=== PATIENT | female | born 1960 | race African-American/Black ===

== ENCOUNTER 2020-01-07 13:06 | Inpatient (IN) ==
[2020-01-07] MEDS ORDERED: DILTIAZEM 25 MG/5 ML VIAL IV ONE (13:44)
[2020-01-07] MEDS ORDERED: DILTIAZEM 50 MG/10 ML VIAL IV STA ×2 (13:45→16:46)
[2020-01-07] MEDS ORDERED: ALBUTEROL/IPRATROPIUM 3 ML NEB RESP TX STA (13:46)
[2020-01-07 14:11] LABS: Ferritin 280.4 ng/ml (8-252)
[2020-01-07 14:20] LABS: Albumin 2.9 G/DL (3.4-5.0); Bilirubin,Total 0.6 MG/DL (0.2-1.0); Calcium 9.4 MG/DL (8.5-10.1); Osmolality,Calculated 276.5 MOS/KG (273-304); Thyroid Stimulating Hormone 0.897 uIU/ml (0.358-3.74); Total Protein 7.2 G/DL (6.4-8.3)
[2020-01-07] MEDS ORDERED: dilTIAZem Drip 125 MG/125 ML PREMIX IV SCH (14:30)
[2020-01-07 14:50] LABS: Basophils # 0.1 10*3/uL (0.0-0.2); Basophils % 0.6 % (0.0-0.8); Eosinophils % 0.4 % (0.00-10.9); Hematocrit 47.1 VOL% (35.7-47.0); Hemoglobin 14.2 GM/DL (12.0-16.0); Immature Granulocytes % 0.4 %; Immature Granulocytes Absolute 0.04 #; Lymphocytes # 1.7 10*3/uL (1.4-4.0); Lymphocytes % 18.2 % (21.3-54.2); Mean Corpuscular HGB Conc 30.1 GM/DL (32-36); Mean Corpuscular Volume 87.7 FL (87-102); Mean Platelet Volume 11.5 FL (9.6-12.0); Monocytes % 8.3 % (1.7-12.7); Neutrophils % 72.1 % (38.7-73.9); Platelet Count 188 T/CUMM (130-400); Red Blood Count 5.37 MC/CUMM (3.8-5.5); Red Cell Distribution Width 16.5 % (9.3-17.3); White Blood Count 9.5 T/CUMM (4-12)
[2020-01-07] MEDS ORDERED: dilTIAZem Drip 125 MG/125 ML PREMIX IV ONE (14:51)
[2020-01-07] MEDS ORDERED: LEVOFLOXACIN INJ 500 MG in PREMIX 1 EACH IV STA (15:30)
[2020-01-07] MEDS ORDERED: AZITHROMYCIN 250 MG TABLET PO STA (15:30)
[2020-01-07 15:45] LABS: Barbiturates Screen,Urine Negative (Negative); Benzodiazepines Screen,Urine Negative (Negative); Cannabinoid Screen,Urine Negative (Negative); Opiate Screen,Urine Negative (Negative); Phencyclidine Screen,Urine Negative (Negative)
[2020-01-07] MEDS ORDERED: FUROSEMIDE 40 MG/4 ML VIAL IV STA (15:50)
[2020-01-07] MEDS ORDERED: BISACODYL 5 MG TABLET PO PRN (15:57)
[2020-01-07] MEDS ORDERED: ONDANSETRON 4 MG/2 ML VIAL IV PRN (15:57)
[2020-01-07] MEDS: ENOXAPARIN 80 MG/0.8 ML SYRINGE SUBCUT SCH (15:58)
[2020-01-07] MEDS ORDERED: ALBUTEROL 2.5 MG/3 ML NEB RESP TX PRN ×2 (16:04→16:27)
[2020-01-07] MEDS ORDERED: NICOTINE 21 MG/24 HR PATCH TRANSDERM PRN (16:27)
[2020-01-07] MEDS ORDERED: cefTRIAXone 1,000 MG in SYRINGE 1 EACH IV SCH (16:30)
[2020-01-07 16:42] LABS: ABG Base Excess 14.5 MMOL/L (-2.5-2.5); ABG HCO3 37.8 MMOL/L (20-26); ABG Oxygen Saturation 74.7 % (95-100); ABG PH 7.318 (7.35-7.45); ABG PO2 46.8 MM HG (80-95); ABG TCO2 40.7 MMOL/L (23-27)
[2020-01-07 16:45] LABS: ABG PCO2 90.7 MM HG (35-48)
[2020-01-07] MEDS ORDERED: LORazepam 2 MG/1 ML VIAL IV PRN (17:19)
[2020-01-07] MEDS: FAMOTIDINE 20 MG TABLET PO SCH (21:35)
[2020-01-07] MEDS: FUROSEMIDE 40 MG/4 ML VIAL IV SCH (21:36)
[2020-01-08 04:42] LABS: Basophils % 0.4 % (0.0-0.8); Eosinophils % 0.2 % (0.00-10.9); Hematocrit 45.2 VOL% (35.7-47.0); Hemoglobin 13.3 GM/DL (12.0-16.0); Immature Granulocytes % 0.4 %; Immature Granulocytes Absolute 0.03 #; Lymphocytes # 1.4 10*3/uL (1.4-4.0); Lymphocytes % 16.8 % (21.3-54.2); Mean Corpuscular HGB Conc 29.4 GM/DL (32-36); Mean Corpuscular Volume 89.5 FL (87-102); Mean Platelet Volume 11.2 FL (9.6-12.0); Monocytes % 9.1 % (1.7-12.7); Neutrophils % 73.1 % (38.7-73.9); Red Blood Count 5.05 MC/CUMM (3.8-5.5); Red Cell Distribution Width 16.6 % (9.3-17.3); White Blood Count 8.2 T/CUMM (4-12)
[2020-01-08 04:44] LABS: Platelet Count 158 T/CUMM (130-400)
[2020-01-08] MEDS: ENOXAPARIN 80 MG/0.8 ML SYRINGE SUBCUT SCH (05:57)
[2020-01-08 07:33] LABS: Calcium 9.3 MG/DL (8.5-10.1); Osmolality,Calculated 277.3 MOS/KG (273-304)
[2020-01-08 08:07] LABS: ABG HCO3 42.1 MMOL/L (20-26); ABG Oxygen Saturation 89.5 % (95-100); ABG PH 7.306 (7.35-7.45); ABG PO2 65.3 MM HG (80-95); ABG TCO2 44.9 MMOL/L (23-27)
[2020-01-08] MEDS: FERROUS SULFATE 325 MG TABLET PO SCH (08:45)
[2020-01-08] MEDS: AZITHROMYCIN 250 MG TABLET PO SCH (08:45)
[2020-01-08] MEDS: FUROSEMIDE 40 MG/4 ML VIAL IV SCH (08:45)
[2020-01-08] MEDS: FAMOTIDINE 20 MG TABLET PO SCH ×2 (08:45→20:12)
[2020-01-08] MEDS: ASPIRIN EC 81 MG TABLET PO SCH (08:46)
[2020-01-08] MEDS ORDERED: CETIRIZINE 10 MG TABLET PO SCH (09:00)
[2020-01-08] MEDS: DILTIAZEM CD 120 MG CAPSULE PO SCH (11:36)
[2020-01-08 13:48] LABS: ABG Base Excess 20.6 MMOL/L (-2.5-2.5); ABG HCO3 44.8 MMOL/L (20-26); ABG Oxygen Saturation 80.5 % (95-100); ABG PH 7.344 (7.35-7.45); ABG PO2 49.4 MM HG (80-95); ABG TCO2 46.7 MMOL/L (23-27)
[2020-01-08 13:50] LABS: ABG PCO2 97.5 MM HG (35-48)
[2020-01-08] MEDS: cefTRIAXone 1,000 MG in SYRINGE 1 EACH IV SCH (16:04)
[2020-01-08] MEDS: methylPREDNISolone SOD SUC 40 MG/1 ML VIAL IV SCH ×2 (17:28→23:15)
[2020-01-08] MEDS: ALBUTEROL/IPRATROPIUM 3 ML NEB RESP TX SCH (20:18)
[2020-01-08] MEDS ORDERED: APIXABAN 5 MG TABLET PO SCH (21:00)
[2020-01-09] MEDS: ALBUTEROL/IPRATROPIUM 3 ML NEB RESP TX SCH ×3 (00:56→17:00)
[2020-01-09 04:22] LABS: Basophils % 0.2 % (0.0-0.8); Eosinophils # 0.3 10*3/uL (0.0-0.87); Eosinophils % 3.7 % (0.00-10.9); Hematocrit 47.7 VOL% (35.7-47.0); Immature Granulocytes Absolute 0.08 #; Lymphocytes # 0.6 10*3/uL (1.4-4.0); Lymphocytes % 7.7 % (21.3-54.2); Mean Corpuscular HGB Conc 28.9 GM/DL (32-36); Mean Corpuscular Volume 90.7 FL (87-102); Mean Platelet Volume 11.3 FL (9.6-12.0); Monocytes % 1.2 % (1.7-12.7); Neutrophils % 86.2 % (38.7-73.9); Platelet Count 156 T/CUMM (130-400); Red Blood Count 5.26 MC/CUMM (3.8-5.5); Red Cell Distribution Width 16.5 % (9.3-17.3); White Blood Count 8.1 T/CUMM (4-12)
[2020-01-09 04:23] LABS: Calcium 9.4 MG/DL (8.5-10.1); Hemoglobin 13.8 GM/DL (12.0-16.0); Osmolality,Calculated 272.8 MOS/KG (273-304)
[2020-01-09 04:40] LABS: ABG Base Excess 13.8 MMOL/L (-2.5-2.5); ABG Oxygen Saturation 73.3 % (95-100); ABG PH 7.318 (7.35-7.45); ABG PO2 46.3 MM HG (80-95)
[2020-01-09 04:45] LABS: ABG PCO2 88.7 MM HG (35-48)
[2020-01-09] MEDS: methylPREDNISolone SOD SUC 40 MG/1 ML VIAL IV SCH ×3 (04:50→16:42)
[2020-01-09 05:00] LABS: Hypochromasia 1+
[2020-01-09 05:01] LABS: Platelet Estimate Adequate
[2020-01-09] MEDS: ASPIRIN EC 81 MG TABLET PO SCH (08:25)
[2020-01-09] MEDS: DILTIAZEM CD 120 MG CAPSULE PO SCH (08:25)
[2020-01-09] MEDS: FAMOTIDINE 20 MG TABLET PO SCH ×2 (08:25→20:44)
[2020-01-09] MEDS: FERROUS SULFATE 325 MG TABLET PO SCH (08:26)
[2020-01-09] MEDS: AZITHROMYCIN 250 MG TABLET PO SCH (08:26)
[2020-01-09] MEDS ORDERED: GLUCAGON 1 MG VIAL IM PRN (10:09)
[2020-01-09] MEDS ORDERED: DEXTROSE 50% 25 GM/50 ML VIAL IV PRN (10:09)
[2020-01-09] MEDS: INSULIN REGULAR 100 UNIT/ML SUBCUT SCH ×3 (14:39→20:44)
[2020-01-09] MEDS: cefTRIAXone 1,000 MG in SYRINGE 1 EACH IV SCH (16:39)
[2020-01-10] MEDS: ALBUTEROL/IPRATROPIUM 3 ML NEB RESP TX SCH ×5 (00:02→19:05)
[2020-01-10] MEDS: methylPREDNISolone SOD SUC 40 MG/1 ML VIAL IV SCH ×5 (01:00→16:44)
[2020-01-10 04:01] LABS: ABG Base Excess 10.9 MMOL/L (-2.5-2.5); ABG HCO3 34.3 MMOL/L (20-26); ABG Oxygen Saturation 84.9 % (95-100); ABG PO2 54.1 MM HG (80-95); ABG TCO2 37.9 MMOL/L (23-27)
[2020-01-10 04:10] LABS: ABG PCO2 90.7 MM HG (35-48)
[2020-01-10 05:32] LABS: Basophils % 0.1 % (0.0-0.8); Immature Granulocytes % 0.6 %; Immature Granulocytes Absolute 0.09 #; Mean Corpuscular HGB Conc 28.6 GM/DL (32-36); Mean Corpuscular Volume 91.4 FL (87-102); Mean Platelet Volume 11.8 FL (9.6-12.0); Monocytes % 3.4 % (1.7-12.7); Neutrophils % 88.9 % (38.7-73.9); Platelet Count 166 T/CUMM (130-400); Red Blood Count 5.12 MC/CUMM (3.8-5.5); Red Cell Distribution Width 16.3 % (9.3-17.3); White Blood Count 14.6 T/CUMM (4-12)
[2020-01-10 05:58] LABS: Calcium 9.2 MG/DL (8.5-10.1); Osmolality,Calculated 280.5 MOS/KG (273-304)
[2020-01-10 05:59] LABS: Hematocrit 46.4 VOL% (35.7-47.0); Hemoglobin 13.4 GM/DL (12.0-16.0)
[2020-01-10 06:10] LABS: Anisocytosis 1+; Platelet Estimate Normal; Target Cells Few
[2020-01-10] MEDS ORDERED: PROMETHAZINE 25 MG/1 ML VIAL IM ONE (07:30)
[2020-01-10] MEDS ORDERED: MEPERIDINE 50 MG/1 ML VIAL IM ONE (07:30)
[2020-01-10] MEDS ORDERED: LIDOCAINE 1% 20 ML VIAL MISC INJ ONE (08:00)
[2020-01-10] MEDS ORDERED: LIDOCAINE 2% VISCOUS 100 ML BOTTLE SWISH/SPIT ONE (08:00)
[2020-01-10] MEDS ORDERED: MIDAZOLAM 2 MG/2 ML VIAL IV ONE (08:00)
[2020-01-10] MEDS ORDERED: LIDOCAINE 2% 20 ML VIAL RESP TX ONE (08:00)
[2020-01-10] MEDS: INSULIN REGULAR 100 UNIT/ML SUBCUT SCH ×4 (09:11→20:55)
[2020-01-10] MEDS: AZITHROMYCIN 250 MG TABLET PO SCH (09:12)
[2020-01-10] MEDS: DILTIAZEM CD 120 MG CAPSULE PO SCH (09:12)
[2020-01-10] MEDS: FAMOTIDINE 20 MG TABLET PO SCH ×2 (09:13→20:55)
[2020-01-10] MEDS: FERREX PO SCH (09:13)
[2020-01-10] MEDS: ASPIRIN EC 81 MG TABLET PO SCH (09:13)
[2020-01-10] MEDS: MAGNESIUM CHLORIDE 64 MG TABLET PO SCH (09:13)
[2020-01-10] MEDS: FERROUS SULFATE 325 MG TABLET PO SCH (09:13)
[2020-01-10] MEDS: [UNRECOGNIZED DRUG - OTHER] PO SCH (09:13)
[2020-01-10] MEDS ORDERED: DOCUSATE SODIUM 100 MG CAPSULE PO PRN (11:47)
[2020-01-10] MEDS ORDERED: DOCUSATE SODIUM 100 MG CAPSULE PO ONE (11:47)
[2020-01-10] MEDS: POLYETHYLENE GLYCOL POWDER 17 GM PACK PO SCH (12:24)
[2020-01-10] MEDS: cefTRIAXone 1,000 MG in SYRINGE 1 EACH IV SCH (16:43)
[2020-01-11] MEDS: ALBUTEROL/IPRATROPIUM 3 ML NEB RESP TX SCH ×4 (00:07→19:53)
[2020-01-11] MEDS: methylPREDNISolone SOD SUC 40 MG/1 ML VIAL IV SCH ×4 (00:23→16:08)
[2020-01-11] MEDS: ACETAMINOPHEN 325 MG TABLET PO PRN (04:56)
[2020-01-11 06:05] LABS: Basophils % 0.1 % (0.0-0.8); Immature Granulocytes % 1.2 %; Immature Granulocytes Absolute 0.18 #
[2020-01-11 06:18] LABS: Calcium 9.3 MG/DL (8.5-10.1); Osmolality,Calculated 281.3 MOS/KG (273-304)
[2020-01-11 06:22] LABS: Lymphocytes # 0.8 10*3/uL (1.4-4.0); Lymphocytes % 5.1 % (21.3-54.2); Mean Corpuscular Volume 91.1 FL (87-102); Mean Platelet Volume 10.9 FL (9.6-12.0); Monocytes % 1.7 % (1.7-12.7); Neutrophils % 91.9 % (38.7-73.9); Platelet Count 145 T/CUMM (130-400); Red Blood Count 5.27 MC/CUMM (3.8-5.5); Red Cell Distribution Width 16.6 % (9.3-17.3); White Blood Count 15.3 T/CUMM (4-12)
[2020-01-11 06:29] LABS: Hemoglobin 13.9 GM/DL (12.0-16.0)
[2020-01-11 06:30] LABS: Hypochromasia 1+; Lymphocytes 2 % (20-55); Platelet Estimate Adequate; Segmented Neutrophils 96 % (50-85); Total Cells Counted 100
[2020-01-11] MEDS: AZITHROMYCIN 250 MG TABLET PO SCH (10:55)
[2020-01-11] MEDS: DILTIAZEM CD 120 MG CAPSULE PO SCH (10:55)
[2020-01-11] MEDS: FAMOTIDINE 20 MG TABLET PO SCH ×2 (10:55→20:47)
[2020-01-11] MEDS: FERROUS SULFATE 325 MG TABLET PO SCH (10:55)
[2020-01-11] MEDS: MAGNESIUM CHLORIDE 64 MG TABLET PO SCH (10:55)
[2020-01-11] MEDS: POLYETHYLENE GLYCOL POWDER 17 GM PACK PO SCH (10:56)
[2020-01-11] MEDS: ASPIRIN EC 81 MG TABLET PO SCH (10:56)
[2020-01-11] MEDS: INSULIN REGULAR 100 UNIT/ML SUBCUT SCH ×4 (10:56→20:47)
[2020-01-11] MEDS: FERREX PO SCH (11:09)
[2020-01-11] MEDS: [UNRECOGNIZED DRUG - OTHER] PO SCH (11:09)
[2020-01-11] MEDS: cefTRIAXone 1,000 MG in SYRINGE 1 EACH IV SCH (16:09)
[2020-01-12] MEDS: methylPREDNISolone SOD SUC 40 MG/1 ML VIAL IV SCH ×3 (00:29→17:15)
[2020-01-12] MEDS: ALBUTEROL/IPRATROPIUM 3 ML NEB RESP TX SCH ×4 (00:43→19:20)
[2020-01-12 05:31] LABS: Basophils % 0.1 % (0.0-0.8); Immature Granulocytes % 1.8 %; Immature Granulocytes Absolute 0.28 #; Lymphocytes # 0.7 10*3/uL (1.4-4.0); Lymphocytes % 4.7 % (21.3-54.2); Mean Corpuscular HGB Conc 28.9 GM/DL (32-36); Mean Corpuscular Volume 91.7 FL (87-102); Mean Platelet Volume 10.9 FL (9.6-12.0); Monocytes % 2.8 % (1.7-12.7); Neutrophils % 90.6 % (38.7-73.9); Platelet Count 142 T/CUMM (130-400); Red Blood Count 5.29 MC/CUMM (3.8-5.5); Red Cell Distribution Width 16.5 % (9.3-17.3); White Blood Count 15.3 T/CUMM (4-12)
[2020-01-12 06:06] LABS: Hematocrit 48.1 VOL% (35.7-47.0)
[2020-01-12 06:08] LABS: Hypochromasia 1+; Lymphocytes 5 % (20-55); Platelet Estimate Adequate; Segmented Neutrophils 93 % (50-85); Total Cells Counted 100
[2020-01-12 06:28] LABS: Calcium 9.2 MG/DL (8.5-10.1); Osmolality,Calculated 280.3 MOS/KG (273-304)
[2020-01-12] MEDS: INSULIN REGULAR 100 UNIT/ML SUBCUT SCH ×4 (08:34→20:34)
[2020-01-12] MEDS: ASPIRIN EC 81 MG TABLET PO SCH (08:50)
[2020-01-12] MEDS: DILTIAZEM CD 120 MG CAPSULE PO SCH (08:50)
[2020-01-12] MEDS: AZITHROMYCIN 250 MG TABLET PO SCH (08:51)
[2020-01-12] MEDS: FAMOTIDINE 20 MG TABLET PO SCH ×2 (08:51→20:34)
[2020-01-12] MEDS: FERROUS SULFATE 325 MG TABLET PO SCH (08:51)
[2020-01-12] MEDS: MAGNESIUM CHLORIDE 64 MG TABLET PO SCH (08:51)
[2020-01-12] MEDS: [UNRECOGNIZED DRUG - OTHER] PO SCH (08:52)
[2020-01-12] MEDS: POLYETHYLENE GLYCOL POWDER 17 GM PACK PO SCH (08:52)
[2020-01-12] MEDS: FERREX PO SCH (08:52)
[2020-01-12] MEDS: ACETAMINOPHEN 325 MG TABLET PO PRN (15:19)
[2020-01-12] MEDS: cefTRIAXone 1,000 MG in SYRINGE 1 EACH IV SCH (17:15)
[2020-01-13] MEDS: ALBUTEROL/IPRATROPIUM 3 ML NEB RESP TX SCH ×4 (00:37→19:20)
[2020-01-13 03:13] LABS: Calcium 9.2 MG/DL (8.5-10.1); Osmolality,Calculated 280.3 MOS/KG (273-304)
[2020-01-13 03:41] LABS: Basophils % 0.1 % (0.0-0.8); Immature Granulocytes % 1.5 %; Immature Granulocytes Absolute 0.22 #; Lymphocytes # 0.8 10*3/uL (1.4-4.0); Lymphocytes % 5.5 % (21.3-54.2); Mean Corpuscular HGB Conc 29.6 GM/DL (32-36); Mean Corpuscular Volume 88.1 FL (87-102); Mean Platelet Volume 11.8 FL (9.6-12.0); Monocytes % 4.9 % (1.7-12.7); Platelet Count 142 T/CUMM (130-400); Red Blood Count 5.56 MC/CUMM (3.8-5.5); Red Cell Distribution Width 16.4 % (9.3-17.3); White Blood Count 14.3 T/CUMM (4-12)
[2020-01-13 03:44] LABS: Hemoglobin 14.5 GM/DL (12.0-16.0)
[2020-01-13] MEDS: methylPREDNISolone SOD SUC 40 MG/1 ML VIAL IV SCH ×2 (04:25→16:23)
[2020-01-13] MEDS ORDERED: MEPERIDINE 50 MG/1 ML VIAL IM ONE (07:00)
[2020-01-13] MEDS ORDERED: PROMETHAZINE 25 MG/1 ML VIAL IM ONE (07:00)
[2020-01-13] MEDS ORDERED: MIDAZOLAM 2 MG/2 ML VIAL ONE (07:22)
[2020-01-13] MEDS ORDERED: LIDOCAINE 1% 20 ML VIAL MISC INJ ONE (07:30)
[2020-01-13] MEDS ORDERED: LIDOCAINE 2% 20 ML VIAL RESP TX ONE (07:30)
[2020-01-13] MEDS ORDERED: LIDOCAINE 2% VISCOUS 100 ML BOTTLE SWISH/SPIT ONE (07:30)
[2020-01-13] MEDS ORDERED: MIDAZOLAM 2 MG/2 ML VIAL IV ONE (07:30)
[2020-01-13] MEDS: INSULIN REGULAR 100 UNIT/ML SUBCUT SCH ×4 (08:56→21:28)
[2020-01-13] MEDS: FERREX PO SCH (09:35)
[2020-01-13] MEDS: [UNRECOGNIZED DRUG - OTHER] PO SCH (09:35)
[2020-01-13] MEDS: ASPIRIN EC 81 MG TABLET PO SCH (09:58)
[2020-01-13] MEDS: POLYETHYLENE GLYCOL POWDER 17 GM PACK PO SCH (09:59)
[2020-01-13] MEDS: DILTIAZEM CD 120 MG CAPSULE PO SCH (09:59)
[2020-01-13] MEDS: FAMOTIDINE 20 MG TABLET PO SCH ×2 (09:59→21:29)
[2020-01-13] MEDS: AZITHROMYCIN 250 MG TABLET PO SCH (09:59)
[2020-01-13] MEDS: FERROUS SULFATE 325 MG TABLET PO SCH (09:59)
[2020-01-13] MEDS: MAGNESIUM CHLORIDE 64 MG TABLET PO SCH (09:59)
[2020-01-13] MEDS: cefTRIAXone 1,000 MG in SYRINGE 1 EACH IV SCH (16:14)
[2020-01-14] MEDS: ALBUTEROL/IPRATROPIUM 3 ML NEB RESP TX SCH ×4 (00:22→19:09)
[2020-01-14] MEDS: methylPREDNISolone SOD SUC 40 MG/1 ML VIAL IV SCH ×2 (06:02→16:24)
[2020-01-14] MEDS: INSULIN REGULAR 100 UNIT/ML SUBCUT SCH ×4 (07:38→21:12)
[2020-01-14] MEDS: FERREX PO SCH (08:39)
[2020-01-14] MEDS: [UNRECOGNIZED DRUG - OTHER] PO SCH (08:39)
[2020-01-14] MEDS: ASPIRIN EC 81 MG TABLET PO SCH (08:39)
[2020-01-14] MEDS: DILTIAZEM CD 120 MG CAPSULE PO SCH (08:39)
[2020-01-14] MEDS: MAGNESIUM CHLORIDE 64 MG TABLET PO SCH (08:40)
[2020-01-14] MEDS: POLYETHYLENE GLYCOL POWDER 17 GM PACK PO SCH (08:40)
[2020-01-14] MEDS: AZITHROMYCIN 250 MG TABLET PO SCH (08:40)
[2020-01-14] MEDS: FAMOTIDINE 20 MG TABLET PO SCH ×2 (08:40→21:12)
[2020-01-14] MEDS: FERROUS SULFATE 325 MG TABLET PO SCH (08:40)
[2020-01-14] MEDS: cefTRIAXone 1,000 MG in SYRINGE 1 EACH IV SCH (16:18)
[2020-01-15] MEDS: ALBUTEROL/IPRATROPIUM 3 ML NEB RESP TX SCH ×4 (00:34→19:29)
[2020-01-15] MEDS: methylPREDNISolone SOD SUC 40 MG/1 ML VIAL IV SCH ×2 (04:40→16:24)
[2020-01-15] MEDS: INSULIN REGULAR 100 UNIT/ML SUBCUT SCH ×4 (07:16→21:17)
[2020-01-15] MEDS: ASPIRIN EC 81 MG TABLET PO SCH (09:15)
[2020-01-15] MEDS: AZITHROMYCIN 250 MG TABLET PO SCH (09:15)
[2020-01-15] MEDS: POLYETHYLENE GLYCOL POWDER 17 GM PACK PO SCH (09:15)
[2020-01-15] MEDS: [UNRECOGNIZED DRUG - OTHER] PO SCH (09:15)
[2020-01-15] MEDS: MAGNESIUM CHLORIDE 64 MG TABLET PO SCH (09:15)
[2020-01-15] MEDS: FERROUS SULFATE 325 MG TABLET PO SCH (09:15)
[2020-01-15] MEDS: FAMOTIDINE 20 MG TABLET PO SCH ×2 (09:15→22:05)
[2020-01-15] MEDS: DILTIAZEM CD 120 MG CAPSULE PO SCH (09:15)
[2020-01-15] MEDS: FERREX PO SCH (09:15)
[2020-01-15] MEDS: cefTRIAXone 1,000 MG in SYRINGE 1 EACH IV SCH (16:24)
[2020-01-16] MEDS: ALBUTEROL/IPRATROPIUM 3 ML NEB RESP TX SCH ×4 (01:05→20:17)
[2020-01-16] MEDS: methylPREDNISolone SOD SUC 40 MG/1 ML VIAL IV SCH (04:43)
[2020-01-16] MEDS ORDERED: SODIUM CHLORIDE 0.9% 1,000 ML IV SCH (06:00)
[2020-01-16] MEDS ORDERED: LABETALOL 20 MG/4 ML SYRINGE IV ONE (08:22)
[2020-01-16] MEDS ORDERED: LIDOCAINE 2% 5 ML VIAL ONE (08:28)
[2020-01-16] MEDS ORDERED: propofoL 200 MG/20 ML VIAL IV ONE (08:28)
[2020-01-16] MEDS ORDERED: DEXTROSE 50% 25 GM/50 ML VIAL IV PRN (09:30)
[2020-01-16] MEDS: INSULIN REGULAR 100 UNIT/ML SUBCUT SCH ×4 (09:31→21:59)
[2020-01-16] MEDS: [UNRECOGNIZED DRUG - OTHER] PO SCH (10:07)
[2020-01-16] MEDS: FERREX PO SCH (10:07)
[2020-01-16] MEDS: DILTIAZEM CD 120 MG CAPSULE PO SCH (10:08)
[2020-01-16] MEDS: FAMOTIDINE 20 MG TABLET PO SCH ×2 (10:08→22:00)
[2020-01-16] MEDS: MAGNESIUM CHLORIDE 64 MG TABLET PO SCH (10:08)
[2020-01-16] MEDS: FERROUS SULFATE 325 MG TABLET PO SCH (10:08)
[2020-01-16] MEDS: ASPIRIN EC 81 MG TABLET PO SCH (10:08)
[2020-01-16] MEDS: POLYETHYLENE GLYCOL POWDER 17 GM PACK PO SCH (10:09)
[2020-01-16] MEDS: METOPROLOL SUCCINATE XL 50 MG TABLET PO SCH (10:09)
[2020-01-17] MEDS: ALBUTEROL/IPRATROPIUM 3 ML NEB RESP TX SCH ×2 (01:18→07:19)
[2020-01-17 05:13] LABS: Basophils % 0.1 % (0.0-0.8); Eosinophils % 0.1 % (0.00-10.9); Hematocrit 47.9 VOL% (35.7-47.0); Immature Granulocytes % 1.5 %; Immature Granulocytes Absolute 0.21 #; Lymphocytes # 1.7 10*3/uL (1.4-4.0); Lymphocytes % 12.1 % (21.3-54.2); Mean Corpuscular HGB Conc 29.6 GM/DL (32-36); Mean Corpuscular Volume 89.5 FL (87-102); Mean Platelet Volume 11.2 FL (9.6-12.0); Monocytes % 10.7 % (1.7-12.7); Neutrophils % 75.5 % (38.7-73.9); Platelet Count 104 T/CUMM (130-400); Red Blood Count 5.35 MC/CUMM (3.8-5.5); Red Cell Distribution Width 16.4 % (9.3-17.3)
[2020-01-17 05:15] LABS: Hemoglobin 14.2 GM/DL (12.0-16.0)
[2020-01-17 06:07] LABS: Calcium 8.9 MG/DL (8.5-10.1)
[2020-01-17 06:09] LABS: Osmolality,Calculated 276.7 MOS/KG (273-304)
[2020-01-17 07:35] VITALS: BP 103/68
[2020-01-17] MEDS: INSULIN REGULAR 100 UNIT/ML SUBCUT SCH (08:54)
[2020-01-17] MEDS: POLYETHYLENE GLYCOL POWDER 17 GM PACK PO SCH (08:55)
[2020-01-17] MEDS: FAMOTIDINE 20 MG TABLET PO SCH (08:56)
[2020-01-17] MEDS: METOPROLOL SUCCINATE XL 50 MG TABLET PO SCH (08:56)
[2020-01-17] MEDS: FERROUS SULFATE 325 MG TABLET PO SCH (08:56)
[2020-01-17] MEDS: MAGNESIUM CHLORIDE 64 MG TABLET PO SCH (08:56)
[2020-01-17] MEDS: DILTIAZEM CD 120 MG CAPSULE PO SCH (08:57)
[2020-01-17] MEDS: ASPIRIN EC 81 MG TABLET PO SCH (08:57)
[2020-01-17] MEDS: [UNRECOGNIZED DRUG - OTHER] PO SCH (09:00)
[2020-01-17] MEDS: FERREX PO SCH (09:00)
[2020-01-17] MEDS ORDERED: methylPREDNISolone SOD SUC 40 MG/1 ML VIAL IV SCH (09:00)
== END 2020-01-17 09:50 | disposition home health service (06) | DRG 136 ==
LOC: N.ED 13:06 → N.EDINP 15:57 → SUATTDRO 15:57 → N.CC 16:17 → N.TELES 01-09 23:54 → N.4E 01-15 10:45
PROVIDERS: ADMIT Family Medicine; ATTEND Family Medicine
PROC: BRONCHB (2020-01-13 07:35)